=== PATIENT | female | born 1965 | race Two or more races ===

== ENCOUNTER → 2018-01-22 | Outpatient (CLI) | payer OTHER | LOC: CFH 09:33 | PROVIDERS: ATTEND Family Medicine | DX: M79.89 Other specified soft tissue disorders (principal); M79.641 Pain in right hand; W54.0XXA Bitten by dog, initial encounter ==

== ENCOUNTER 2021-07-07 09:09 | Emergency (ER) | payer OTHER ==
[~2021-07-07] VITALS: Ht 157.5 cm; Wt 69.7 kg
--- NOTE | 2021-07-07 10:18 | NUR ---
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
--- NOTE | 2021-07-07 10:55 | NUR ---
Medicated per order, computer in room not working 5 rights.
[2021-07-07 11:22] VITALS: BP 135/78
== END 2021-07-07 11:46 | disposition home or self-care (01) ==
LOC: ED 11:25
DX: G51.0 Bell's palsy (principal); R53.1 Weakness
CPT/HCPCS: 99283; J7512